=== PATIENT | female | born 1990 | race Caucasian/White ===

== ENCOUNTER 2016-06-25 19:46 | Inpatient (IN) | payer OTHER ==
[~2016-06-25] VITALS: Ht 172.7 cm; Wt 80.3 kg
[2016-06-26] MEDS ORDERED: PRENATAL PLUS I1 TAB PO (01:40)
[2016-06-26] MEDS ORDERED: ACID CONTROL150 MG PO (01:41)
[2016-06-27] MEDS ORDERED: MIRALAX17 GM PO (11:44)
[2016-06-28] MEDS ORDERED: MOTRIN800 MG PO (16:40)
[2016-06-28] MEDS ORDERED: COLACE100 MG PO (16:42)
[2016-06-28] MEDS ORDERED: LAN-O-SOOTHE7 GM TOP (16:42)
== END 2016-06-28 17:55 | disposition short-term general hospital (02) | DRG 775 ==
LOC: LDRIP 19:46
PROVIDERS: ADMIT Family Medicine
PROC: 0KQM0ZZ Repair Perineum Muscle, Open Approach (ICD-10-PCS; principal; 2016-06-26)
PROC: 10E0XZZ Delivery of Products of Conception, External Approach (ICD-10-PCS; principal; 2016-06-26)
PROC: 3E0P7GC Introduction of Other Therapeutic Substance into Female Reproductive, Via Natural or Artificial Opening (ICD-10-PCS; principal; 2016-06-26)
DX: O42.12 Full-term premature rupture of membranes, onset of labor more than 24 hours following rupture (principal); Z3A.40 40 weeks gestation of pregnancy; Z37.0 Single live birth; O70.1 Second degree perineal laceration during delivery
CPT/HCPCS: A9150; J0690; J2310; J2370; J2590; J2765; J2795; J3010